=== PATIENT | male | born 1995 | race Caucasian/White ===

== ENCOUNTER 2021-02-17 19:59 | Emergency (ER) | payer BC ==
[~2021-02-17] VITALS: Ht 185.4 cm; Wt 106.8 kg
[~2021-02-17 19:59] MED LIST: MINOCIN 50M50 MG/CAP PO; NO HOME MEDICATIONS; NORCO 325 MG-51 TAB PO
[2021-02-17 20:05] VITALS: TEMP 97.2
[2021-02-17 21:38] VITALS: BP 126/70; PULSE 66
== END 2021-02-17 21:38 | disposition home or self-care (01) ==
LOC: COL.ER 19:59
DX: M79.605 Pain in left leg (principal)

== ENCOUNTER → 2021-02-18 | Outpatient (CLI) | payer BC | LOC: COL.VAS 08:58 | DX: M79.89 Other specified soft tissue disorders (principal) ==